=== PATIENT | female | born 1985 | race Caucasian/White ===

== ENCOUNTER → 2016-12-09 | Outpatient (CLI) | payer OTHER ==
[~2016-12-09] MED LIST: ASCO25TA PO; CENTTAB47 PO; IRON1TAB PO; PERCOCET PO; VITA100037 PO; VITA100T20 PO
[2016-12-09 19:04] LABS: ANION GAP 8 MEQ/L (8-16); BLOOD UREA NITROGEN 16 MG/DL (7-18); CALCIUM LEVEL 8.6 MG/DL (8.5-10.1); CARBON DIOXIDE LEVEL 29 MEQ/L (21-32); CHLORIDE LEVEL 105 MEQ/L (98-107); CREATININE FOR GFR 0.66 MG/DL (0.55-1.02); GLOMERULAR FILTRATION RATE > 60.0 (>60); GLUCOSE, FASTING 88 MG/DL (70-105); MAGNESIUM LEVEL 2.5 MG/DL (1.8-2.4); PHOSPHORUS LEVEL 4.1 MG/DL (2.5-4.9); POTASSIUM SERUM 4.6 MEQ/L (3.5-5.1); SODIUM LEVEL 142 MEQ/L (136-145)
[2016-12-09 20:35] LABS: MEAN CORPUSCULAR HGB CONC 30.7 g/dl (32.0-36.5); MEAN CORPUSCULAR VOLUME 88.1 fl (80.0-96.0); RED CELL DISTRIBUTION WIDTH 15.7 % (11.5-14.5); WHITE BLOOD COUNT 4.6 K/mm3 (4.0-10.0)
== END ==
LOC: M WUC 10:46
PROVIDERS: ATTEND Plastic Surgery
DX: Z98.84 Bariatric surgery status (principal)

== ENCOUNTER → 2017-02-26 | Outpatient (CLI) | payer OTHER ==
[2017-02-26 07:56] LABS: BASO % 0.7 % (0.0-1.0); EOS # 0.1 K/mm3 (0.0-0.50); EOS % 1.2 % (0.0-3.0); LARGE UNSTAINED CELL # 0.1 K/mm3 (0.0-0.4); LARGE UNSTAINED CELL % 1.1 % (0.0-4.0); LYMPH # 1.7 K/mm3 (1.5-4.5); LYMPH % 25.1 % (24.0-44.0); MEAN CORPUSCULAR HEMOGLOBIN 27.1 pg (27.0-33.0); MEAN CORPUSCULAR HGB CONC 31.8 g/dl (32.0-36.5); MEAN CORPUSCULAR VOLUME 85.3 fl (80.0-96.0); MONO # 0.4 K/mm3 (0.0-0.8); MONO % 5.7 % (0.0-5.0); NEUTROPHILS # 4.4 K/mm3 (1.8-7.7); NEUTROPHILS % 66.3 % (36.0-66.0); PLATELET COUNT, AUTOMATED 395 k/mm3 (150-450); RED CELL DISTRIBUTION WIDTH 15.1 % (11.5-14.5); WHITE BLOOD COUNT 6.6 K/mm3 (4.0-10.0)
[2017-02-26 08:02] LABS: ALBUMIN 3.3 GM/DL (3.2-5.2); ALBUMIN/GLOBULIN RATIO 1.06 (1.00-1.93); ALKALINE PHOSPHATASE 74 U/L (45-117); ALT/SGPT 27 U/L (12-78); ANION GAP 4 MEQ/L (8-16); AST/SGOT 20 U/L (15-37); BILIRUBIN,TOTAL 0.3 MG/DL (0.2-1.0); BLOOD UREA NITROGEN 12 MG/DL (7-18); CALCIUM LEVEL 8.4 MG/DL (8.5-10.1); CARBON DIOXIDE LEVEL 31 MEQ/L (21-32); CHLORIDE LEVEL 106 MEQ/L (98-107); CHOLESTEROL LEVEL 132 MG/DL (<200); CREATININE FOR GFR 0.65 MG/DL (0.55-1.02); GLOMERULAR FILTRATION RATE > 60.0 (>60); GLUCOSE, FASTING 88 MG/DL (70-105); POTASSIUM SERUM 4.4 MEQ/L (3.5-5.1); SODIUM LEVEL 141 MEQ/L (136-145); TOTAL PROTEIN 6.4 GM/DL (6.4-8.2); TRIGLYCERIDES LEVEL 48 MG/DL (<150)
== END ==
LOC: M LAB 07:18
PROVIDERS: ATTEND Physician Assistant
DX: D53.9 Nutritional anemia, unspecified (principal); E55.9 Vitamin D deficiency, unspecified; Z98.84 Bariatric surgery status

== ENCOUNTER → 2017-03-19 | Outpatient (REF) | payer OTHER | LOC: M LAB REF 17:09 | PROVIDERS: ATTEND Physician Assistant Medical | DX: J02.9 Acute pharyngitis, unspecified (principal) ==

== ENCOUNTER → 2017-04-10 | Outpatient (CLI) | payer OTHER ==
[~2017-04-10] MED LIST changes: -VITA100037 PO; +VITA100067 PO
[2017-04-10 08:51] LABS: ALBUMIN 3.2 GM/DL (3.2-5.2); ALBUMIN/GLOBULIN RATIO 1.03 (1.00-1.93); ALKALINE PHOSPHATASE 78 U/L (45-117); ALT/SGPT 22 U/L (12-78); AST/SGOT 16 U/L (15-37); BILIRUBIN,DIRECT < 0.1 MG/DL (0.0-0.2); BILIRUBIN,TOTAL 0.2 MG/DL (0.2-1.0); TOTAL PROTEIN 6.3 GM/DL (6.4-8.2)
== END ==
LOC: M LAB 07:40
PROVIDERS: ATTEND Physician Assistant
DX: R16.0 Hepatomegaly, not elsewhere classified (principal)

== ENCOUNTER → 2017-06-27 | Outpatient (CLI) | payer OTHER ==
[2017-06-27 15:23] LABS: BASO # 0.1 10^3/uL (0.0-0.2); EOS % 0.3 % (0.0-3.0); IMMATURE GRANULOCYTE % 0.3 % (0-0); LYMPH # 2.6 10^3/uL (1.5-4.5); LYMPH % 36.1 % (24.0-44.0); MEAN CORPUSCULAR HEMOGLOBIN 26.5 pg (27.0-33.0); MEAN CORPUSCULAR HGB CONC 31.3 g/dl (32.0-36.5); MEAN CORPUSCULAR VOLUME 84.8 fl (80.0-96.0); MONO # 0.3 10^3/uL (0.0-0.8); MONO % 4.4 % (0.0-5.0); NEUTROPHILS # 4.3 10^3/uL (1.8-7.7); NEUTROPHILS % 57.9 % (36.0-66.0); PLATELET COUNT, AUTOMATED 416 10^3/uL (150-450); WHITE BLOOD COUNT 7.3 10^3/uL (4.0-10.0)
[2017-06-27 15:24] LABS: ADD MORPHOLOGY? NO
[2017-06-27 15:43] LABS: ANION GAP 3 MEQ/L (8-16); BLOOD UREA NITROGEN 10 MG/DL (7-18); CALCIUM LEVEL 8.3 MG/DL (8.5-10.1); CARBON DIOXIDE LEVEL 31 MEQ/L (21-32); CHLORIDE LEVEL 104 MEQ/L (98-107); CREATININE FOR GFR 0.75 MG/DL (0.55-1.02); GLOMERULAR FILTRATION RATE > 60.0 (>60); GLUCOSE, FASTING 208 MG/DL (70-105); PERCENT SATURATION 12.7 % (13.2-45.0); POTASSIUM SERUM 4.3 MEQ/L (3.5-5.1); SODIUM LEVEL 138 MEQ/L (136-145); TOTAL IRON BINDING CAPACITY 379 UG/DL (250-450)
== END ==
LOC: M LAB 14:59
PROVIDERS: ATTEND Physician Assistant
DX: R53.83 Other fatigue (principal); D53.9 Nutritional anemia, unspecified

== ENCOUNTER → 2017-08-07 | Outpatient (CLI) | payer OTHER ==
--- NOTE | 2017-08-10 10:47 | SLEEPHOME ---
DATE OF STUDY: 08/07/2017 ORDERED BY: SAIDA Cordero Diagnostic home sleep testing was performed due to concern for the obstructive sleep apnea syndrome. For testing, a NOX-T3 respiratory monitoring device was used. Continuous record was made of pulse, oxygen saturation, air flow, chest and abdominal strain and body position. 10 hours and 59 minutes of data were reviewed. Of these, 7 hours and 43 minutes were marked as time in bed. During the interval marked time in bed, there were 44 respiratory events identified of 10 seconds in duration or greater for a respiratory event index of 5.7. The events were primarily obstructive. Occasional central apneas were seen as well. Baseline pulse rate 68 beats per minute. Pulse rate ranged 50-110. Baseline saturation 94%. Lowest oxygen saturation 82%. Testing was performed in both the supine and non supine positions. There was not positional nature to the respiratory events. IMPRESSION: Abnormal home sleep testing with repetitive respiratory events and oxygen desaturations to 82% with a respiratory event index of 5.7 is consistent with the obstructive sleep apnea syndrome. RECOMMENDATION: Given the frequency of events, and oxygen desaturations to 82%, referral for formal sleep testing and in-laboratory pressure titration is recommended.
== END ==
LOC: M SLEEP HO 12:38
PROVIDERS: ATTEND Physician Assistant
DX: R53.83 Other fatigue (principal); G47.9 Sleep disorder, unspecified

== ENCOUNTER → 2017-10-13 | Outpatient (CLI) | payer OTHER ==
[2017-10-13 10:34] LABS: BASO # 0.1 10^3/uL (0.0-0.2); BASO % 1.3 % (0.0-1.0); EOS # 0.1 10^3/uL (0.0-0.50); EOS % 1.3 % (0.0-3.0); HEMATOCRIT 36.2 % (36.0-47.0); HEMOGLOBIN 11.7 g/dl (12.0-16.0); IMMATURE GRANULOCYTE % 0.3 % (0-0); LYMPH # 1.9 10^3/uL (1.5-4.5); LYMPH % 31.2 % (24.0-44.0); MEAN CORPUSCULAR HEMOGLOBIN 27.8 pg (27.0-33.0); MEAN CORPUSCULAR HGB CONC 32.3 g/dl (32.0-36.5); MONO # 0.5 10^3/uL (0.0-0.8); MONO % 7.6 % (0.0-5.0); NEUTROPHILS # 3.5 10^3/uL (1.8-7.7); NEUTROPHILS % 58.3 % (36.0-66.0); PLATELET COUNT, AUTOMATED 389 10^3/uL (150-450); RED BLOOD COUNT 4.21 10^6/uL (4.00-5.40); RED CELL DISTRIBUTION WIDTH 15.5 % (11.5-14.5); WHITE BLOOD COUNT 6.1 10^3/uL (4.0-10.0)
[2017-10-13 11:04] LABS: VITAMIN B12 LEVEL 504 PG/ML
[2017-10-13 11:05] LABS: FOLATE 23.6 NG/ML
[2017-10-13 11:18] LABS: ALBUMIN 3.5 GM/DL (3.2-5.2); ALBUMIN/GLOBULIN RATIO 1.09 (1.00-1.93); ALKALINE PHOSPHATASE 64 U/L (45-117); ALT/SGPT 22 U/L (12-78); ANION GAP 5 MEQ/L (8-16); AST/SGOT 18 U/L (7-37); BILIRUBIN,TOTAL 0.3 MG/DL (0.2-1.0); BLOOD UREA NITROGEN 13 MG/DL (7-18); CALCIUM LEVEL 8.5 MG/DL (8.5-10.1); CARBON DIOXIDE LEVEL 31 MEQ/L (21-32); CHLORIDE LEVEL 106 MEQ/L (98-107); CREATININE FOR GFR 0.65 MG/DL (0.55-1.02); GLOMERULAR FILTRATION RATE > 60.0 (>60); GLUCOSE, FASTING 81 MG/DL (70-105); POTASSIUM SERUM 4.5 MEQ/L (3.5-5.1); SODIUM LEVEL 142 MEQ/L (136-145); TOTAL PROTEIN 6.7 GM/DL (6.4-8.2)
[2017-10-15 14:12] LABS: VITAMIN D 1,25 DIHYDROXY 57.3 pg/mL (19.9-79.3)
== END ==
LOC: M LAB 09:46
DX: D53.9 Nutritional anemia, unspecified (principal)
CPT/HCPCS: 82746

== ENCOUNTER → 2017-11-30 | Outpatient (CLI) | payer OTHER | LOC: M SLEEP 20:00 | DX: G47.33 Obstructive sleep apnea (adult) (pediatric) (principal) ==

== ENCOUNTER → 2018-04-13 | Outpatient (CLI) | payer OTHER ==
[2018-04-13 13:22] LABS: BASO # 0.1 10^3/uL (0.0-0.2); BASO % 1.6 % (0.0-1.0); EOS # 0.1 10^3/uL (0.0-0.50); EOS % 1.4 % (0.0-3.0); HEMATOCRIT 30.3 % (36.0-47.0); HEMOGLOBIN 9.4 g/dl (12.0-15.5); IMMATURE GRANULOCYTE % 0.2 % (0-3.0); LYMPH # 1.8 10^3/uL (1.5-4.5); LYMPH % 31.7 % (24.0-44.0); MEAN CORPUSCULAR HEMOGLOBIN 26.3 pg (27.0-33.0); MEAN CORPUSCULAR VOLUME 84.6 fl (80.0-96.0); MONO # 0.5 10^3/uL (0.0-0.8); MONO % 8.6 % (0.0-5.0); NEUTROPHILS # 3.2 10^3/uL (1.8-7.7); NEUTROPHILS % 56.5 % (36.0-66.0); PLATELET COUNT, AUTOMATED 453 10^3/uL (150-450); RED BLOOD COUNT 3.58 10^6/uL (4.00-5.40); RED CELL DISTRIBUTION WIDTH 16.9 % (11.5-14.5); WHITE BLOOD COUNT 5.7 10^3/uL (4.0-10.0)
[2018-04-13 13:38] LABS: FERRITIN 2 NG/ML (8-252); IRON (FE) 22 UG/DL (50-170); PERCENT SATURATION 5.4 % (13.2-45.0); TOTAL IRON BINDING CAPACITY 410 UG/DL (250-450)
[2018-04-13 15:01] LABS: TOTAL 25(OH) VITAMIN D 23.7 NG/ML (30.0-100.0)
[2018-04-13 15:02] LABS: FOLATE 15.4 NG/ML; VITAMIN B12 LEVEL 214 PG/ML
== END ==
LOC: M SMT 09:31
DX: D50.9 Iron deficiency anemia, unspecified (principal); E55.9 Vitamin D deficiency, unspecified; Z98.84 Bariatric surgery status
CPT/HCPCS: 82746

== ENCOUNTER → 2018-05-22 | Outpatient (CLI) | payer OTHER | LOC: M SMT 09:53 | DX: M54.2 Cervicalgia (principal) ==

== ENCOUNTER → 2018-07-23 | Outpatient (CLI) | payer OTHER ==
[2018-07-23 16:49] LABS: BASO # 0.1 10^3/uL (0.0-0.2); BASO % 1.1 % (0.0-1.0); EOS # 0.2 10^3/uL (0.0-0.50); EOS % 2.3 % (0.0-3.0); HEMATOCRIT 34.2 % (36.0-47.0); HEMOGLOBIN 10.5 g/dl (12.0-15.5); IMMATURE GRANULOCYTE % 0.2 % (0-3.0); LYMPH % 31.3 % (24.0-44.0); MEAN CORPUSCULAR HEMOGLOBIN 26.4 pg (27.0-33.0); MEAN CORPUSCULAR HGB CONC 30.7 g/dl (32.0-36.5); MEAN CORPUSCULAR VOLUME 85.9 fl (80.0-96.0); MONO # 0.6 10^3/uL (0.0-0.8); MONO % 9.7 % (0.0-5.0); NEUTROPHILS # 3.6 10^3/uL (1.8-7.7); NEUTROPHILS % 55.4 % (36.0-66.0); PLATELET COUNT, AUTOMATED 453 10^3/uL (150-450); RED BLOOD COUNT 3.98 10^6/uL (4.00-5.40); WHITE BLOOD COUNT 6.5 10^3/uL (4.0-10.0)
[2018-07-23 17:00] LABS: FERRITIN 1 NG/ML (8-252); IRON (FE) 17 UG/DL (50-170); PERCENT SATURATION 4.1 % (13.2-45.0); TOTAL IRON BINDING CAPACITY 413 UG/DL (250-450)
== END ==
LOC: M WUC 11:49
DX: D50.9 Iron deficiency anemia, unspecified (principal)
CPT/HCPCS: 83550

== ENCOUNTER 2018-08-04 11:53 | Outpatient (CLI) | payer OTHER ==
[2018-08-04] MEDS: IRON SUCROSE 500 MG in NS 250 ML IV (12:39)
== END 2018-08-04 17:00 | disposition home or self-care (01) ==
LOC: M INFU 11:53
DX: D50.9 Iron deficiency anemia, unspecified (principal); Z88.3 Allergy status to other anti-infective agents; Z91.013 Allergy to seafood
CPT/HCPCS: J1756

== ENCOUNTER → 2018-11-12 | Outpatient (CLI) | payer OTHER ==
[~2018-11-12] MED LIST changes: +[UNRECOGNIZED DRUG - CODE] PO
[2018-11-12 17:20] LABS: ALBUMIN 3.9 GM/DL (3.2-5.2); ALT/SGPT 23 U/L (12-78); BILIRUBIN,TOTAL 0.2 MG/DL (0.2-1.0); BLOOD UREA NITROGEN 10 MG/DL (7-18); CALCIUM LEVEL 8.8 MG/DL (8.5-10.1); CARBON DIOXIDE LEVEL 29 MEQ/L (21-32); CHLORIDE LEVEL 104 MEQ/L (98-107); CREATININE FOR GFR 0.84 MG/DL (0.55-1.30); FERRITIN 4 NG/ML (8-252); GLOMERULAR FILTRATION RATE > 60.0 (>60); GLUCOSE, FASTING 126 MG/DL (70-100); IRON (FE) 28 UG/DL (50-170); PERCENT SATURATION 7.8 % (13.2-45.0); POTASSIUM SERUM 4.5 MEQ/L (3.5-5.1); SODIUM LEVEL 140 MEQ/L (136-145); TOTAL IRON BINDING CAPACITY 359 UG/DL (250-450); TOTAL PROTEIN 6.8 GM/DL (6.4-8.2)
[2018-11-12 17:23] LABS: BASO # 0.1 10^3/uL (0.0-0.2); BASO % 1.3 % (0.0-1.0); EOS # 0.1 10^3/uL (0.0-0.50); EOS % 1.7 % (0.0-3.0); HEMATOCRIT 37.6 % (36.0-47.0); HEMOGLOBIN 12.4 g/dl (12.0-15.5); LYMPH # 2.6 10^3/uL (1.5-4.5); LYMPH % 34.9 % (24.0-44.0); MEAN CORPUSCULAR HEMOGLOBIN 29.9 pg (27.0-33.0); MEAN CORPUSCULAR VOLUME 90.6 fl (80.0-96.0); MONO # 0.5 10^3/uL (0.0-0.8); MONO % 6.6 % (0.0-5.0); NEUTROPHILS # 4.1 10^3/uL (1.8-7.7); NEUTROPHILS % 55.2 % (36.0-66.0); PLATELET COUNT, AUTOMATED 397 10^3/uL (150-450); RED BLOOD COUNT 4.15 10^6/uL (4.00-5.40); WHITE BLOOD COUNT 7.5 10^3/uL (4.0-10.0)
[2018-11-12 18:14] LABS: VITAMIN B12 LEVEL 292 PG/ML (247-911)
[2018-11-13 10:55] LABS: TOTAL 25(OH) VITAMIN D 29.4 NG/ML (30.0-100.0)
== END ==
LOC: M WUC 14:24
PROVIDERS: ATTEND Family Medicine
DX: D50.9 Iron deficiency anemia, unspecified (principal); E55.9 Vitamin D deficiency, unspecified; Z98.84 Bariatric surgery status

== ENCOUNTER → 2018-11-13 | Outpatient (REF) | payer OTHER | LOC: M LAB REF 15:38 | PROVIDERS: ATTEND Physician Assistant | DX: J02.9 Acute pharyngitis, unspecified (principal) ==

== ENCOUNTER → 2019-02-14 | Outpatient (CLI) | payer OTHER ==
[~2019-02-14] MED LIST changes: -ASCO25TA PO; +OXYC1TAB23 PO; -PERCOCET PO; -VITA100T20 PO; +VITA100T51 PO; +VITA1TAB23 PO
[2019-02-14 17:19] LABS: ALBUMIN 3.3 GM/DL (3.2-5.2); ALT/SGPT 20 U/L (12-78); BILIRUBIN,TOTAL 0.3 MG/DL (0.2-1.0); BLOOD UREA NITROGEN 11 MG/DL (7-18); CALCIUM LEVEL 8.4 MG/DL (8.5-10.1); CARBON DIOXIDE LEVEL 31 MEQ/L (21-32); CHLORIDE LEVEL 108 MEQ/L (98-107); FERRITIN 3 NG/ML (8-252); GLOMERULAR FILTRATION RATE > 60.0 (>60); GLUCOSE, FASTING 81 MG/DL (70-100); IRON (FE) 31 UG/DL (50-170); PERCENT SATURATION 9.3 % (13.2-45.0); SODIUM LEVEL 142 MEQ/L (136-145); TOTAL IRON BINDING CAPACITY 332 UG/DL (250-450); TOTAL PROTEIN 6.1 GM/DL (6.4-8.2)
[2019-02-14 17:29] LABS: BASO # 0.1 10^3/uL (0.0-0.2); BASO % 0.8 % (0.0-1.0); EOS # 0.2 10^3/uL (0.0-0.50); EOS % 2.2 % (0.0-3.0); HEMATOCRIT 36.9 % (36.0-47.0); HEMOGLOBIN 11.6 g/dl (12.0-15.5); LYMPH # 2.2 10^3/uL (1.5-4.5); LYMPH % 30.3 % (24.0-44.0); MEAN CORPUSCULAR HEMOGLOBIN 29.3 pg (27.0-33.0); MEAN CORPUSCULAR HGB CONC 31.4 g/dl (32.0-36.5); MEAN CORPUSCULAR VOLUME 93.2 fl (80.0-96.0); MONO # 0.6 10^3/uL (0.0-0.8); MONO % 7.9 % (0.0-5.0); NEUTROPHILS # 4.3 10^3/uL (1.8-7.7); NEUTROPHILS % 58.7 % (36.0-66.0); PLATELET COUNT, AUTOMATED 404 10^3/uL (150-450); RED BLOOD COUNT 3.96 10^6/uL (4.00-5.40); WHITE BLOOD COUNT 7.3 10^3/uL (4.0-10.0)
== END ==
LOC: M WUC 08:56
PROVIDERS: ATTEND Physician Assistant
DX: D50.9 Iron deficiency anemia, unspecified (principal)

== ENCOUNTER → 2019-03-04 | Outpatient (REF) | payer OTHER ==
[2019-03-04 18:39] LABS: FOLLICLE STIMULATING HORMONE 9.4 mIU/mL; FREE T4 1.01 NG/DL (0.76-1.46); LUTEINIZING HORMONE 5.8 mIU/mL; PROGESTERONE 0.21 NG/ML; THYROID STIMULATING HORMONE 1.69 uIU/ML (0.358-3.740)
[2019-03-07 00:06] LABS: TESTOSTERONE FREE (DIRECT) 1.5 pg/mL (0.0-4.2)
== END ==
LOC: M LAB REF 17:28
PROVIDERS: ATTEND Obstetrics & Gynecology
DX: N92.1 Excessive and frequent menstruation with irregular cycle (principal)

== ENCOUNTER → 2019-06-02 | Outpatient (CLI) | payer OTHER ==
[2019-06-02 09:36] LABS: BASO # 0.1 10^3/uL (0.0-0.2); BASO % 1.2 % (0.0-1.0); EOS # 0.1 10^3/uL (0.0-0.5); EOS % 1.2 % (0.0-3.0); HEMATOCRIT 37.6 % (36.0-47.0); HEMOGLOBIN 12.2 g/dl (12.0-15.5); LYMPH # 1.6 10^3/uL (1.5-5.0); LYMPH % 28.7 % (24.0-44.0); MEAN CORPUSCULAR HEMOGLOBIN 29.1 pg (27.0-33.0); MEAN CORPUSCULAR HGB CONC 32.4 g/dl (32.0-36.5); MEAN CORPUSCULAR VOLUME 89.7 fl (80.0-96.0); MONO # 0.4 10^3/uL (0.0-0.8); MONO % 7.4 % (0.0-5.0); NEUTROPHILS # 3.5 10^3/uL (1.5-8.5); NEUTROPHILS % 61.3 % (36.0-66.0); PLATELET COUNT, AUTOMATED 425 10^3/uL (150-450); RED BLOOD COUNT 4.19 10^6/uL (4.00-5.40); WHITE BLOOD COUNT 5.7 10^3/uL (4.0-10.0)
[2019-06-02 10:04] LABS: ALBUMIN 3.5 GM/DL (3.2-5.2); ALT/SGPT 29 U/L (12-78); BILIRUBIN,TOTAL 0.4 MG/DL (0.2-1.0); BLOOD UREA NITROGEN 9 MG/DL (7-18); CALCIUM LEVEL 8.7 MG/DL (8.5-10.1); CARBON DIOXIDE LEVEL 30 MEQ/L (21-32); CHLORIDE LEVEL 106 MEQ/L (98-107); CREATININE FOR GFR 0.68 MG/DL (0.55-1.30); FERRITIN 4 NG/ML (8-252); GLOMERULAR FILTRATION RATE > 60.0 (>60); GLUCOSE, FASTING 85 MG/DL (70-100); IRON (FE) 46 UG/DL (50-170); POTASSIUM SERUM 4.8 MEQ/L (3.5-5.1); SODIUM LEVEL 140 MEQ/L (136-145); TOTAL IRON BINDING CAPACITY 353 UG/DL (250-450); TOTAL PROTEIN 6.4 GM/DL (6.4-8.2)
[2019-06-02 12:51] LABS: TOTAL 25(OH) VITAMIN D 27.6 NG/ML (30.0-100.0)
== END ==
LOC: M LAB 08:16
PROVIDERS: ATTEND Family Medicine
DX: D50.9 Iron deficiency anemia, unspecified (principal); E55.9 Vitamin D deficiency, unspecified; Z98.84 Bariatric surgery status

== ENCOUNTER → 2020-02-04 | Outpatient (CLI) | payer OTHER ==
--- NOTE | 2020-02-07 11:42 | REPPI ---
REASON: Back pain. Seven views were obtained with flexion and extension bending views. FINDINGS: Five views of the lumbosacral spine show no acute fracture, dislocation or subluxation. The intervertebral disc spaces are symmetric and well maintained. There is no spondylolisthesis. The pedicles are intact bilaterally and there is no destructive osseous lesions. Flexion and extension bending views show no evidence of instability. Mild chronic endplate changes are seen involving the imaged portion of the thoracic spine. IMPRESSION: Unremarkable lumbosacral spine series. Electronically Signed by Emanuel Mcintyre DO 02/07/2020 12:50 P
== END ==
LOC: M PLAIMG 12:03
PROVIDERS: ATTEND Physician Assistant
DX: M54.5 Low back pain (principal)

== ENCOUNTER → 2020-11-09 | Outpatient (CLI) | payer OTHER ==
[~2020-11-09] MED LIST changes: -VITA1TAB23 PO; +VITA250T20 PO
[2020-11-09 11:47] LABS: ALBUMIN 3.5 GM/DL (3.2-5.2); ALT/SGPT 25 U/L (12-78); AMYLASE 51 U/L (25-115); BILIRUBIN,TOTAL 0.3 MG/DL (0.2-1.0); BLOOD UREA NITROGEN 11 MG/DL (7-18); CALCIUM LEVEL 8.6 MG/DL (8.5-10.1); CARBON DIOXIDE LEVEL 30 MEQ/L (21-32); CHLORIDE LEVEL 105 MEQ/L (98-107); CREATININE FOR GFR 0.63 MG/DL (0.55-1.30); FERRITIN 4 NG/ML (8-252); FREE T4 0.95 NG/DL (0.76-1.46); GLOMERULAR FILTRATION RATE > 60.0 (>60); GLUCOSE, FASTING 79 MG/DL (70-100); IRON (FE) 48 UG/DL (50-170); LIPASE 185 U/L (73-393); PERCENT SATURATION 14.1 % (13.2-45.0); POTASSIUM SERUM 4.8 MEQ/L (3.5-5.1); SODIUM LEVEL 140 MEQ/L (136-145); TOTAL 25(OH) VITAMIN D 25.3 NG/ML (30.0-100.0); TOTAL IRON BINDING CAPACITY 340 UG/DL (250-450); TOTAL PROTEIN 6.7 GM/DL (6.4-8.2); VITAMIN B12 LEVEL 209 PG/ML (247-911)
== END ==
LOC: M LAB 09:38
PROVIDERS: ATTEND Family Medicine
DX: D50.9 Iron deficiency anemia, unspecified (principal); R10.84 Generalized abdominal pain

== ENCOUNTER 2020-11-13 06:49 | Outpatient (CLI) | payer OTHER ==
[~2020-11-13] VITALS: Ht 165.1 cm; Wt 92.7 kg
[2020-11-13 07:00] VITALS: BP 116/78
[2020-11-13] MEDS ORDERED: IRON SUCROSE 500 MG in NS 250 ML OVER 4 HRS IV ONE (07:00)
[2020-11-13] MEDS ORDERED: DULO1CAP4 PO (07:10)
[2020-11-13] MEDS ORDERED: VITAMIN D PO (07:13)
[2020-11-13] MEDS ORDERED: GNP250TA9 PO (07:16)
[2020-11-13] MEDS ORDERED: CYAN1000VL IM (07:18)
[2020-11-13 07:45] VITALS: BP_SYST 134; BP_SYST 74; BP_DIAS 74
[2020-11-13 08:41] VITALS: BP 110/58
[2020-11-13 10:00] VITALS: BP 105/59
[2020-11-13 12:00] VITALS: BP 116/78
== END 2020-11-13 12:00 | disposition home or self-care (01) ==
LOC: M INFU 06:49
PROVIDERS: ATTEND Family Medicine
DX: D50.9 Iron deficiency anemia, unspecified (principal); Z91.013 Allergy to seafood
CPT/HCPCS: 96365; 96366; J1756

== ENCOUNTER → 2021-01-09 | Outpatient (REF) | payer OTHER ==
[~2021-01-09] MED LIST changes: +CYAN1000VL IM; +DULO1CAP4 PO; +GNP250TA9 PO; +VITAMIN D PO
== END ==
LOC: M LAB REF 16:42
PROVIDERS: ATTEND Family Medicine
DX: N39.0 Urinary tract infection, site not specified (principal)

== ENCOUNTER → 2021-04-16 | Outpatient (CLI) | payer OTHER ==
[2021-04-16 18:46] LABS: BASO # 0.1 10^3/uL (0.0-0.2); BASO % 0.9 % (0.0-1.0); EOS # 0.1 10^3/uL (0.0-0.5); EOS % 0.9 % (0.0-3.0); HEMATOCRIT 40.6 % (36.0-47.0); HEMOGLOBIN 13.4 g/dl (12.0-15.5); LYMPH # 2.7 10^3/uL (1.5-5.0); MEAN CORPUSCULAR HEMOGLOBIN 32.9 pg (27.0-33.0); MEAN CORPUSCULAR VOLUME 99.8 fl (80.0-96.0); MONO # 0.7 10^3/uL (0.0-0.8); NEUTROPHILS # 4.1 10^3/uL (1.5-8.5); NEUTROPHILS % 53.9 % (36.0-66.0); PLATELET COUNT, AUTOMATED 384 10^3/uL (150-450); RED BLOOD COUNT 4.07 10^6/uL (4.00-5.40); WHITE BLOOD COUNT 7.7 10^3/uL (4.0-10.0)
[2021-04-16 19:12] LABS: PERCENT SATURATION 34.4 % (13.2-45.0)
[2021-04-16 19:22] LABS: TOTAL 25(OH) VITAMIN D 32.3 NG/ML (30.0-100.0)
== END ==
LOC: M LAB 17:12
PROVIDERS: ATTEND Family Medicine
DX: D50.9 Iron deficiency anemia, unspecified (principal)

== ENCOUNTER → 2021-06-29 | Outpatient (CLI) | payer OTHER ==
[2021-06-29 12:12] LABS: BASO # 0.1 10^3/uL (0.0-0.2); BASO % 1.1 % (0.0-1.0); EOS % 0.6 % (0.0-3.0); HEMATOCRIT 41.2 % (36.0-47.0); HEMOGLOBIN 13.5 g/dl (12.0-15.5); LYMPH # 2.2 10^3/uL (1.5-5.0); LYMPH % 31.2 % (24.0-44.0); MEAN CORPUSCULAR HEMOGLOBIN 31.8 pg (27.0-33.0); MEAN CORPUSCULAR HGB CONC 32.8 g/dl (32.0-36.5); MEAN CORPUSCULAR VOLUME 96.9 fl (80.0-96.0); MONO # 0.6 10^3/uL (0.0-0.8); MONO % 8.7 % (2.0-8.0); NEUTROPHILS # 4.1 10^3/uL (1.5-8.5); NEUTROPHILS % 58.1 % (36.0-66.0); PLATELET COUNT, AUTOMATED 338 10^3/uL (150-450); RED BLOOD COUNT 4.25 10^6/uL (4.00-5.40); WHITE BLOOD COUNT 7.1 10^3/uL (4.0-10.0)
[2021-06-29 12:41] LABS: ALBUMIN 3.4 GM/DL (3.2-5.2); ALT/SGPT 27 U/L (12-78); BILIRUBIN,DIRECT < 0.1 MG/DL (0.0-0.2); BILIRUBIN,TOTAL 0.4 MG/DL (0.2-1.0); BLOOD UREA NITROGEN 14 MG/DL (7-18); CALCIUM LEVEL 8.5 MG/DL (8.5-10.1); CARBON DIOXIDE LEVEL 29 MEQ/L (21-32); CHLORIDE LEVEL 109 MEQ/L (98-107); CHOLESTEROL LEVEL 135 MG/DL (<200); CHOLESTEROL RISK RATIO 2.142 (<5); CREATININE FOR GFR 0.73 MG/DL (0.55-1.30); GLOMERULAR FILTRATION RATE > 60.0 (>60); GLUCOSE, FASTING 95 MG/DL (70-100); HDL CHOLESTEROL 63 MG/DL (>40); LDL CHOLESTEROL 61 MG/DL (<100); LIPASE 156 U/L (73-393); NON-HDL-C 72 MG/DL; POTASSIUM SERUM 4.4 MEQ/L (3.5-5.1); SODIUM LEVEL 141 MEQ/L (136-145); TOTAL PROTEIN 6.4 GM/DL (6.4-8.2); TRIGLYCERIDES LEVEL 55 MG/DL (<150)
== END ==
LOC: M LAB 11:41
PROVIDERS: ATTEND Physician Assistant
DX: R10.10 Upper abdominal pain, unspecified (principal)

== ENCOUNTER → 2021-07-05 | Outpatient (CLI) | payer OTHER ==
[~2021-07-05] MED LIST changes: +GASTROGRAFIN SOLUTION 30ML (Q9963) As Ordered ONE; +ISOVUE-370 76% 100ML VIAL As Ordered ONE
--- NOTE | 2021-07-05 18:11 | REP ---
INDICATION: LT FLANK PAIN W/ H/O GASTRIC BYPASS. COMPARISON: 08/01/2015 TECHNIQUE: Axial contrast-enhanced images from the lung bases to the pubic symphysis using oral and 100 cc Isovue 370 intravenous contrast material. Coronal and sagittal reformations obtained. This CT examination was performed using the following dose reduction techniques: Automated exposure control, adjustment of mA and/or kv according to the patient's size, and the use of iterative reconstruction technique. FINDINGS: Liver demonstrates mild fatty infiltration. The spleen, pancreas, right adrenal glands and bilateral kidneys are normal. 1.3 cm left adrenal adenoma remains stable. Prior cholecystectomy noted. The patient is status post gastric bypass without acute findings. Small and large bowel without obstruction or acute inflammatory process. Normal terminal ileum and appendix identified in the right lower quadrant. Sigmoid diverticula noted without acute diverticulitis. Pelvis demonstrates normal bladder and age-appropriate uterus/adnexa. No ascites. No free air. No intraperitoneal or retroperitoneal adenopathy. Abdominal aorta and vasculature appear normal. Musculoskeletal structures are intact and without acute osseous abnormality. IMPRESSION: No acute abdominopelvic pathology appreciated. <Electronically signed by Sridhar Mccoy > 07/05/21 [id number]
== END ==
LOC: M RAD 15:56
PROVIDERS: ATTEND Physician Assistant
DX: R10.10 Upper abdominal pain, unspecified (principal); K76.0 Fatty (change of) liver, not elsewhere classified
CPT/HCPCS: 74177; Q9963; Q9967

== ENCOUNTER → 2022-07-15 | Outpatient (REF) | payer OTHER ==
[~2022-07-15] MED LIST changes: -GASTROGRAFIN SOLUTION 30ML (Q9963) As Ordered ONE; -ISOVUE-370 76% 100ML VIAL As Ordered ONE
== END ==
LOC: M SFHCWAGY 12:52
PROVIDERS: ATTEND Nurse Practitioner Family
DX: Z12.4 Encounter for screening for malignant neoplasm of cervix (principal)

== ENCOUNTER → 2022-07-23 | Outpatient (CLI) | payer OTHER ==
[2022-07-23 10:48] LABS: BASO # 0.1 10^3/uL (0.0-0.2); BASO % 1.3 % (0.0-1.0); EOS % 0.4 % (0.0-3.0); HEMATOCRIT 42.5 % (36.0-47.0); LYMPH # 1.4 10^3/uL (1.5-5.0); LYMPH % 24.8 % (24.0-44.0); MEAN CORPUSCULAR HGB CONC 32.9 g/dl (32.0-36.5); MEAN CORPUSCULAR VOLUME 97.3 fl (80.0-96.0); MONO # 0.4 10^3/uL (0.0-0.8); MONO % 7.5 % (2.0-8.0); NEUTROPHILS # 3.6 10^3/uL (1.5-8.5); NEUTROPHILS % 65.8 % (36.0-66.0); PLATELET COUNT, AUTOMATED 353 10^3/uL (150-450); RED BLOOD COUNT 4.37 10^6/uL (4.00-5.40); WHITE BLOOD COUNT 5.5 10^3/uL (4.0-10.0)
[2022-07-23 11:42] LABS: ALBUMIN 3.7 GM/DL (3.2-5.2); ALT/SGPT 29 U/L (12-78); BILIRUBIN,TOTAL 0.4 MG/DL (0.2-1.0); BLOOD UREA NITROGEN 11 MG/DL (7-18); CALCIUM LEVEL 8.8 MG/DL (8.5-10.1); CARBON DIOXIDE LEVEL 26 MEQ/L (21-32); CHLORIDE LEVEL 108 MEQ/L (98-107); CREATININE FOR GFR 0.67 MG/DL (0.55-1.30); GLOMERULAR FILTRATION RATE > 60.0 (>60); GLUCOSE, FASTING 93 MG/DL (70-100); IRON (FE) 283 UG/DL (50-170); PERCENT SATURATION 81.8 % (13.2-45.0); POTASSIUM SERUM 4.5 MEQ/L (3.5-5.1); RHEUMATOID FACTOR QUANT < 10.0 IU/ML (<15.0); SODIUM LEVEL 138 MEQ/L (136-145); TOTAL IRON BINDING CAPACITY 346 UG/DL (250-450); TOTAL PROTEIN 6.9 GM/DL (6.4-8.2); URIC ACID 4.1 MG/DL (2.6-6.0)
[2022-07-23 12:18] LABS: TOTAL 25(OH) VITAMIN D 27.3 NG/ML (30.0-100.0); VITAMIN B12 LEVEL 701 PG/ML (247-911)
[2022-07-23 12:32] LABS: ERYTHROCYTE SEDIMENTATION RATE 8 mm/hr (0-20)
[2022-07-24 23:11] LABS: ANA (HEP2) Negative (.); CYCLIC CITRULLINATED PEPTIDE 5 units (0-19)
== END ==
LOC: M LAB 09:56
PROVIDERS: ATTEND Nurse Practitioner Adult Health
DX: G89.4 Chronic pain syndrome (principal); D50.9 Iron deficiency anemia, unspecified; D51.9 Vitamin B12 deficiency anemia, unspecified; E55.9 Vitamin D deficiency, unspecified; Z98.84 Bariatric surgery status

== ENCOUNTER → 2023-04-15 | Outpatient (CLI) | payer OTHER ==
[~2023-04-15] MED LIST changes: +[UNRECOGNIZED DRUG - CODE] PO; -[UNRECOGNIZED DRUG - CODE] PO
== END ==
LOC: M WUC 12:39
PROVIDERS: ATTEND Allergy & Immunology Allergy
DX: T78.02XA Anaphylactic reaction due to shellfish (crustaceans), initial encounter (principal); J31.0 Chronic rhinitis

== ENCOUNTER → 2023-04-15 | Outpatient (CLI) | payer OTHER ==
[2023-04-15 17:39] LABS: BASO # 0.1 10^3/uL (0.0-0.2); EOS % 0.6 % (0.0-3.0); HEMATOCRIT 40.9 % (36.0-47.0); HEMOGLOBIN 13.1 g/dl (12.0-15.5); MEAN CORPUSCULAR HEMOGLOBIN 31.7 pg (27.0-33.0); MONO # 0.6 10^3/uL (0.0-0.8); MONO % 9.1 % (2.0-8.0); NEUTROPHILS # 3.5 10^3/uL (1.5-8.5); NEUTROPHILS % 56.1 % (36.0-66.0); PLATELET COUNT, AUTOMATED 373 10^3/uL (150-450); RED BLOOD COUNT 4.13 10^6/uL (4.00-5.40); WHITE BLOOD COUNT 6.2 10^3/uL (4.0-10.0)
[2023-04-15 17:55] LABS: PERCENT SATURATION 15.9 % (13.2-45.0)
[2023-04-15 17:58] LABS: TOTAL 25(OH) VITAMIN D 36.6 NG/ML (20.0-100.0)
== END ==
LOC: M WUC 12:16
PROVIDERS: ATTEND Family Medicine
DX: D50.9 Iron deficiency anemia, unspecified (principal)

== ENCOUNTER 2023-04-29 08:32 | Outpatient (CLI) | payer OTHER ==
[~2023-04-29] VITALS: Ht 165.1 cm; Wt 90.8 kg
[~2023-04-29 08:32] MED LIST changes: +IRON SUCROSE 500 MG in NS 250 ML OVER 4 HRS IV ONE
[2023-04-29] MEDS ORDERED: CURRENT HEIGHT AND WEIGHT NEEDED ON PATIENT XX SCH (09:00)
[2023-04-29 09:08] VITALS: BP 132/76; O2SAT 99
[2023-04-29 10:20] VITALS: BP 117/60; O2SAT 100
[2023-04-29 11:20] VITALS: BP 122/75; O2SAT 100
[2023-04-29 12:20] VITALS: BP 127/84; O2SAT 100
[2023-04-29 13:45] VITALS: BP 126/65; O2SAT 98
== END 2023-04-29 14:05 | disposition home or self-care (01) ==
LOC: M INFU 08:32
PROVIDERS: ATTEND Family Medicine
DX: D50.9 Iron deficiency anemia, unspecified (principal); Z88.3 Allergy status to other anti-infective agents
CPT/HCPCS: 96365; 96366; J1756

== ENCOUNTER → 2023-07-22 | Outpatient (CLI) | payer OTHER ==
[~2023-07-22] MED LIST changes: -IRON SUCROSE 500 MG in NS 250 ML OVER 4 HRS IV ONE
[2023-07-22 18:47] LABS: BASO # 0.1 10^3/uL (0.0-0.2); BASO % 0.9 % (0.0-1.0); EOS # 0.1 10^3/uL (0.0-0.5); EOS % 1.8 % (0.0-3.0); HEMATOCRIT 42.1 % (36.0-47.0); LYMPH # 2.6 10^3/uL (1.5-5.0); LYMPH % 34.9 % (24.0-44.0); MEAN CORPUSCULAR HEMOGLOBIN 32.3 pg (27.0-33.0); MEAN CORPUSCULAR HGB CONC 33.3 g/dl (32.0-36.5); MEAN CORPUSCULAR VOLUME 97.2 fl (80.0-96.0); MONO # 0.7 10^3/uL (0.0-0.8); MONO % 9.1 % (2.0-8.0); PLATELET COUNT, AUTOMATED 344 10^3/uL (150-450); RED BLOOD COUNT 4.33 10^6/uL (4.00-5.40); WHITE BLOOD COUNT 7.6 10^3/uL (4.0-10.0)
[2023-07-22 19:18] LABS: ALBUMIN 3.8 G/DL (3.2-5.2); ALKALINE PHOSPHATASE 68 U/L (46-116); ALT/SGPT 26 U/L (7.0-40); AST/SGOT 23 U/L (<34); BILIRUBIN,TOTAL 0.2 MG/DL (0.3-1.2); BLOOD UREA NITROGEN 14 MG/DL (9-23); CALCIUM LEVEL 8.9 MG/DL (8.5-10.1); CARBON DIOXIDE LEVEL 29 MMOL/L (20-31); CHLORIDE LEVEL 107 MMOL/L (98-107); CREATININE FOR GFR 0.65 MG/DL (0.55-1.30); GLOMERULAR FILTRATION RATE > 60.0 (>60); GLUCOSE, FASTING 88 MG/DL (60-100); IRON (FE) 83 UG/DL (50-170); PERCENT SATURATION 27.5 % (13.2-45.0); POTASSIUM SERUM 4.9 MMOL/L (3.5-5.1); SODIUM LEVEL 141 MMOL/L (136-145); TOTAL IRON BINDING CAPACITY 302 UG/DL (250-425); TOTAL PROTEIN 6.6 G/DL (5.7-8.2)
[2023-07-22 19:19] LABS: FREE T4 1.02 NG/DL (0.89-1.76)
[2023-07-22 19:20] LABS: FOLATE 15.7 NG/ML (>5.4)
[2023-07-22 19:21] LABS: VITAMIN B12 LEVEL 223 PG/ML (211-911)
== END ==
LOC: M LAB 17:23
PROVIDERS: ATTEND Nurse Practitioner Adult Health
DX: D50.9 Iron deficiency anemia, unspecified (principal)

== ENCOUNTER → 2025-01-24 | Outpatient (CLI) | payer OTHER ==
[2025-01-24 13:24] LABS: BASO # 0.1 10^3/uL (0.0-0.2); BASO % 0.9 % (0.0-1.0); EOS % 0.7 % (0.0-3.0); HEMATOCRIT 39.2 % (36.0-47.0); HEMOGLOBIN 13.2 g/dl (12.0-15.5); LYMPH # 1.5 10^3/uL (1.5-5.0); LYMPH % 26.1 % (24.0-44.0); MEAN CORPUSCULAR HEMOGLOBIN 32.6 pg (27.0-33.0); MEAN CORPUSCULAR HGB CONC 33.7 g/dl (32.0-36.5); MEAN CORPUSCULAR VOLUME 96.8 fl (80.0-96.0); MONO # 0.5 10^3/uL (0.0-0.8); MONO % 8.7 % (2.0-8.0); NEUTROPHILS # 3.7 10^3/uL (1.5-8.5); NEUTROPHILS % 63.4 % (36.0-66.0); PLATELET COUNT, AUTOMATED 363 10^3/uL (150-450); RED BLOOD COUNT 4.05 10^6/uL (4.00-5.40); WHITE BLOOD COUNT 5.9 10^3/uL (4.0-10.0)
[2025-01-24 13:55] LABS: FOLATE 11.6 NG/ML (>5.4); TOTAL 25(OH) VITAMIN D 37.5 NG/ML (20.0-100.0)
[2025-01-24 13:57] LABS: PERCENT SATURATION 40.3 % (13.2-45.0)
== END ==
LOC: M WUC 08:52
PROVIDERS: ATTEND Nurse Practitioner Adult Health
DX: D50.9 Iron deficiency anemia, unspecified (principal); D51.9 Vitamin B12 deficiency anemia, unspecified; E55.9 Vitamin D deficiency, unspecified

== ENCOUNTER → 2025-02-14 | Outpatient (CLI) | payer OTHER | LOC: M WHC 08:16 | PROVIDERS: ATTEND Nurse Practitioner Adult Health | DX: Z12.31 Encounter for screening mammogram for malignant neoplasm of breast (principal) ==